=== PATIENT | female | born 1955 | race Caucasian/White ===

== ENCOUNTER → 2016-06-11 | Outpatient (CLI) | payer OTHER ==
--- NOTE | 2016-06-12 10:29 | RADRPT ---
PROCEDURE: Nuclear medicine thyroid scan CLINICAL INDICATION: Thyroid nodule. Left lower pole thyroid adenoma. TECHNIQUE: 179.6 microcuries of I-123 was ingested by the patient. Planar imaging of the thyroid bed was performed in the anterior and oblique views. Images were reviewed on the high resolution [employer] workstation. 6 hour and 24 uptake values were measured. COMPARISON: None available FINDINGS: Normal and homogeneous activity throughout the thyroid gland is seen bilaterally. No abnormality is identified. Specifically, no abnormality is seen in the lower pole of the left lobe of the thyroid g land. The 4 hour uptake value equals 11.2%, within normal limits. The 24 hour uptake value equals 3 3.6%, at the upper limits of normal. IMPRESSION: 1. Negative nuclear medicine thyroid scan. 2. Normal uptake values. RPTAT: PP .Luigi Ponce MD, Date Time Electronically viewed and signed by .Luigi Ponce MD, MD on 06/12/2016 10:29 .B/
== END | disposition home or self-care (01) ==
LOC: NUC 09:46
PROVIDERS: ATTEND Surgery Surgical Oncology
DX: D36.7 Benign neoplasm of other specified sites (principal)
CPT/HCPCS: 78014; A9516